=== PATIENT | female | born 1965 | race Caucasian/White ===

== ENCOUNTER 2018-02-12 20:13 | Emergency (ER) | payer OTHER ==
[~2018-02-12] VITALS: Ht 160 cm; Wt 108.9 kg
[~2018-02-12 20:13] MED LIST: ATENOLOL50 M1 PO; EFFEXOR XR150 M1 PO; FLUTICASON0.05 MG/A2 NASB; LEXAPRO20 M1 PO; NORVASC10 M1 PO; NYSTATIN1 EAC8 PO; TYLENOL WITH C1 EACH PO; VALTREX500 M1 PO; ZOLPIDEM TARTRA10 M1 PO
--- NOTE | 2018-02-12 21:17 | RADIOLOGY REPORT ---
EXAMINATION: 1. Right knee 2. Right tibia-fibula. 3. Right ankle CLINICAL INFORMATION: Fall. Pain. COMPARISON: None TECHNIQUE: 1. Right knee. 6 views 2. Right tibia-fibula. 2 views 3. Right ankle. 3 views FINDINGS: 1. Right knee. No fracture. No dislocation. No joint effusion. There is mild joint narrowing of the medial femoral tibial joint. No significant spur or erosion. 2. Right tibia-fibula. No fracture. The tibia and fibula are normal. 3. Right ankle. There is no fracture. There is no dislocation. Ankle mortise is congruent. There is no soft tissue abnormality. IMPRESSION: 1. Right knee. No acute abnormality. 2. Right tibia-fibula. No acute abnormality. 3. Right ankle. No acute abnormality.
--- NOTE | 2018-02-12 21:18 | RADIOLOGY REPORT ---
EXAMINATION: XR SHOULDER, RIGHT CLINICAL INFORMATION: Fall. No the diagnosis: Fracture. COMPARISON: MRI dated 05/10/2014 TECHNIQUE: AP external rotation, Grashey, scapular Y, and axillary views of the right shoulder. FINDINGS: There is mild acromioclavicular osteoarthritis. Mild to moderate osteoarthritis is present at the glenohumeral joint as well with significant joint space narrowing and small marginal osteophytes. No fracture. Alignment is anatomic. Soft tissues are normal with no abnormal calcifications. IMPRESSION: Mild to moderate osteoarthritis at the glenohumeral and acromioclavicular joints. No fracture or malalignment.
[2018-02-12] MEDS ORDERED: HYDROCHLOROTHIA25 M1 PO (21:28)
--- NOTE | 2018-02-12 22:15 | ED GENERAL ADULT ---
History of Present Illness General Chief Complaint: General Adult Stated Complaint: "RT KNEE,FOOT SHOULDER PAIN S/P FALL -LOC" Source: patient Exam Limitations: no limitations Vital Signs & Intake/Output Vital Signs & Intake/Output Vital Signs Date Time Temp Pulse Resp B/P B/P Pulse O2 O2 Flow FiO2 Mean Ox Delivery Rate 02/12 2045 98.1 71 16 116/76 97 Room Air Allergies Coded Allergies: penicillin V (UNKNOWN 11/04/17) Reconcile Medications Amlodipine Besylate (Norvasc) 10 MG TABLET 1 TAB PO DAILY HEART (Reported) Atenolol 50 MG TABLET 1 TAB PO DAILY HEART (Reported) Escitalopram Oxalate (Lexapro) 20 MG TABLET 1 TAB PO DAILY MENTAL HEALTH ( Reported) Hydrochlorothiazide 25 MG TABLET 1 TAB PO DAILY BP (Reported) Nystatin 1 BILLION UNIT POWDER.EA. 1 BERNABE PO DAILY PRN AFFECTED AREA (Reported ) Tylenol With Codeine (Tylenol With Codeine #3 Tablet) 300 MG-30 MG TABLET 2 TAB PO Q6P PRN PAIN (Reported) Valacyclovir Hydrochloride (Valtrex) (Unknown Strength) TABLET (Unknown Dose) PO DAILY PRN UNKNOWN (Reported) Venlafaxine HCl (Effexor XR) 150 MG CAP.ER.24H 1 CAP PO DAILY MENTAL HEALTH ( Reported) Zolpidem Tartrate 10 MG TABLET 1 TAB PO QPMP PRN SLEEP (Reported) Triage Note: 52F CAUGHT FOOT AND FELL ONTO RIGHT SIDE, NOW HAS RIGHT TOE, FOOT, ANKLE, KNEE AND SHOULDER PAIN. RECENT RIGHT KNEE SX IN NOVEMBER. DENIES HIP, WRIST, ELBOW PAIN AND DENIES HEADSTRIKE. PAIN 8/10. PAIN IS WORST TO BALL OF FOOT AND ANKLE. DECLINES MOTRIN OFFERED Triage Nurses Notes Reviewed? yes Onset: Abrupt Duration: hour(s): Timing: single episode today HPI: 52-year-old female with a history of hypertension and anxiety presenting with right leg and right shoulder pain status post mechanical fall approximately 1 hour prior to arrival. Patient reports that she tripped and fell, landed on the right side of her body. Denies head strike or loss of consciousness. Patient recently had surgery to her right knee for meniscus tear approximately 1.5 months ago. Presents to the emergency department because she is concerned for repeat injury. Denies numbness or paresthesias. (Irma ORDONEZ,Jeanette) Past History Travel History Traveled to [place] past 21 day No Medical History Any Pertinent Medical History? see below for history Neurological: NONE EENT: NONE Cardiovascular: hypertension Respiratory: NONE Gastrointestinal: NONE Hepatic: NONE Renal: NONE Musculoskeletal: NONE Psychiatric: anxiety Endocrine: NONE Blood Disorders: NONE HUMANITIES COORDINATOR/Reproductive: NONE Surgical History Surgical History: non-contributory Psychosocial History What is your primary language Maltese Tobacco Use: Never used Family History Hx Contributory? No (Jeanette Magdaleno) Review of Systems Review of Systems Constitutional: Reports: no symptoms. EENTM: Reports: no symptoms. Respiratory: Reports: no symptoms. Cardiovascular: Reports: no symptoms. GI: Reports: no symptoms. Genitourinary: Reports: no symptoms. Musculoskeletal: Reports: see HPI. Skin: Reports: no symptoms. Neurological/Psychological: Reports: no symptoms. Hematologic/Endocrine: Reports: no symptoms. Immunologic/Allergic: Reports: no symptoms. All Other Systems: Reviewed and Negative (Jeanette Magdaleno) Physical Exam Physical Exam General Appearance: well developed/nourished, no apparent distress, alert, awake Comments: Primary Survey: Airway: intact Breathing: breath sounds equal bilaterally Circulation: 2+ distal pulses Disability: a&ox3, pupils equally round and reactive Secondary Survey: Head: Normocephalic, atraumatic, nontender, no skull depressions/deformities Ears: No hemotympanum Nose: No epistaxis or septal hematomas Throat/mouth : No oral lacerations, no missing teeth Face: No abrasions/lacerations, no crepitus or deformities Neck: No midline TTP, unrestricted c-spine ROM Heart: Regular rate and rhythm Lungs: Clear to auscultation bilaterally with normal air entry Chest: Nontender, no flail segments Abdomen: Soft, nontender, nondistended, normal bowel sounds Pelvis: Non-tender and stable to AP and lateral compression Extremities: Right shoulder has no focal tenderness to palpation, unrestricted range of motion, and the right upper extremity is neurovascularly intact. Unrestricted range of motion at the right hip, mild decrease in range of motion at the right knee and right ankle, tender to palpation diffusely over the left knee and left ankle, the pain does not localize, the right lower extremity is neurovascularly intact, no knee instability. Patient has difficulty with weightbearing. Neurologic: Cranial nerves grossly intact, no motor/sensory deficitis, cerebellalr function intact Skin: warm and dry and without ecchymoses or abrasions Back: No midline TTP of C-spine, T-spine, or L-spine Rectal exam: deferred Core Measures ACS in differential dx? No CVA/TIA Diagnosis: No Sepsis Present: No Sepsis Focused Exam Completed? No (Jeanette Magdaleno) Progress Differential Diagnoses I considered the following diagnoses in my evaluation of the patient: [Fracture versus dislocation versus ligament injury versus meniscus injury] Plan of Care: Current Medications Sig/Juan C Start time Last Medication Dose Stop Time Status Admin Acetaminophen 650 MG ONCE ONE 02/12 2200 UNVr 02/12 (Tylenol) 02/12 X-rays 1. Right knee. No acute abnormality. 2. Right tibia-fibula. No acute abnormality. 3. Right ankle. No acute abnormality. Shoulder x-ray IMPRESSION: Mild to moderate osteoarthritis at the glenohumeral and acromioclavicular joints. No fracture or malalignment. Patient offered knee immobilizer given her recent orthopedic surgery, but declining. States that she has her own knee immobilizer at home that she will use. She was instructed to remain nonweightbearing until she follows up with her orthopedist. She has crutches that she will use for ambulation. Counseled on supportive care and strict return precautions. Initial ED EKG: none (Jeanette Magdaleno) Departure Departure Disposition: HOME OR SELF CARE Condition: Stable Clinical Impression Primary Impression: Right knee pain Secondary Impressions: Fall, Right ankle pain, Right shoulder pain Referrals: Melina Johnson (PCP/Family) Additional Instructions: Use Tylenol or ibuprofen as needed for pain. Keep your knee in your knee immobilizer that you have at home, use crutches for ambulation. Follow-up with your orthopedist for reevaluation. Return to the emergency department for any new or worsening symptoms. Departure Forms: Customer Survey General Discharge Information (Jeanette Magdaleno) PA/SENIOR ASSET MANAGER Co-Sign Statement Statement: ED Attending supervision documentation- [] I saw and evaluated the patient. I have also reviewed all the pertinent lab results and diagnostic results. I agree with the findings and the plan of care as documented in the PA's/SENIOR ASSET MANAGER's documentation. [x] I have reviewed the ED Record and agree with the PA's/SENIOR ASSET MANAGER's documentation. [] Additions or exceptions (if any) to the PAs/SENIOR ASSET MANAGER's note and plan are summarized below: [] (Rubens MADRID,Vicente Biggs) Critical Care Note Critical Care Note Critical Care Time: non-applicable (Irma ORDONEZ,Jeanette)
[2018-02-12 22:38] VITALS: BP 113/75
== END 2018-02-12 22:35 ==
LOC: ERH 20:13
DX: M25.561 Pain in right knee (principal); M25.571 Pain in right ankle and joints of right foot; M25.511 Pain in right shoulder
CPT/HCPCS: 73030-RT; 73562-RT; 73590-RT; 73610-RT; 73630-RT